=== PATIENT | female | born 1950 | race Caucasian/White ===

== ENCOUNTER 2023-06-30 09:11 | Outpatient (RCR) | payer MEDICARE, OTHER, SELFPAY | END 2023-06-30 23:59 | disposition home or self-care (01) | LOC: RST 09:11 | PROVIDERS: ATTENDING PHYSICIAN Specialist; FAMILY PHYSICIAN Internal Medicine | DX: G31.01 Pick's disease (principal); F02.80 Dementia in other diseases classified elsewhere, unspecified severity, without behavioral disturbance, psychotic disturbance, mood disturbance, and anxiety; R47.01 Aphasia | CPT/HCPCS: 92507; 97535 ==

== ENCOUNTER 2023-08-03 06:44 | Outpatient (RCR) | payer MEDICARE, OTHER, SELFPAY | END 2023-08-03 23:59 | disposition home or self-care (01) | LOC: ROT 06:44 | PROVIDERS: ATTENDING PHYSICIAN Internal Medicine | DX: R42 Dizziness and giddiness (principal); Z73.6 Limitation of activities due to disability; G31.09 Other frontotemporal neurocognitive disorder; R47.01 Aphasia; Z86.73 Personal history of transient ischemic attack (TIA), and cerebral infarction without residual deficits; Z86.16 Personal history of COVID-19 | CPT/HCPCS: 92523; 97112; 97163; 97167 ==

== ENCOUNTER → 2023-08-19 09:07 | Outpatient (REF) | payer MEDICARE, OTHER, SELFPAY | LOC: RAD 09:07 | PROVIDERS: ATTENDING PHYSICIAN Specialist; FAMILY PHYSICIAN Specialist/Technologist Athletic Trainer | DX: R13.10 Dysphagia, unspecified (principal) | CPT/HCPCS: 74221; 74230; 92611 ==

== ENCOUNTER 2023-09-08 08:45 | Outpatient (RCR) | payer MEDICARE, OTHER, SELFPAY | END 2023-09-08 23:59 | disposition home or self-care (01) | LOC: ROT 08:45 | PROVIDERS: ATTENDING PHYSICIAN Internal Medicine | DX: G45.9 Transient cerebral ischemic attack, unspecified (principal); R42 Dizziness and giddiness; Z73.6 Limitation of activities due to disability; G31.09 Other frontotemporal neurocognitive disorder; R47.01 Aphasia | CPT/HCPCS: 92507; 97110; 97112; 97530; 97535 ==

== ENCOUNTER 2023-10-05 09:12 | Outpatient (RCR) | payer MEDICARE, OTHER, SELFPAY | END 2023-10-05 23:59 | disposition home or self-care (01) | LOC: ROT 09:12 | PROVIDERS: ATTENDING PHYSICIAN Internal Medicine | DX: I69.820 Aphasia following other cerebrovascular disease (principal); I69.818 Other symptoms and signs involving cognitive functions following other cerebrovascular disease; G31.09 Other frontotemporal neurocognitive disorder; R42 Dizziness and giddiness; Z73.6 Limitation of activities due to disability | CPT/HCPCS: 92507; 97530 ==

== ENCOUNTER 2023-10-20 07:01 | Outpatient (RCR) | payer MEDICARE, OTHER, SELFPAY | END 2023-10-20 09:58 | disposition home or self-care (01) | LOC: ROT 07:01 | PROVIDERS: ATTENDING PHYSICIAN Internal Medicine | DX: G45.9 Transient cerebral ischemic attack, unspecified (principal); Z73.6 Limitation of activities due to disability; G31.09 Other frontotemporal neurocognitive disorder; R47.01 Aphasia | CPT/HCPCS: 92507; 97530 ==